=== PATIENT | female | born 1965 | race Caucasian/White ===

== ENCOUNTER 2016-12-13 21:56 | Emergency (ER) | payer SELFPAY ==
[~2016-12-13] VITALS: Ht 149.9 cm; Wt 95.8 kg
[2016-12-13] MEDS ORDERED: LIDOCAINE HCL 1% 50 ML VIAL INFIL ONE (22:30)
--- NOTE | 2016-12-13 22:45 | PD ---
HPI Chief Complaint: Laceration/Skin Injury Time Seen by Provider: 22:40 Travel History International Travel<30 days: No Contact w/Intl Traveler<30days: No Traveled to known affect area: No History of Present Illness HPI 51-year-old female that presents to the ED for evaluation of varicose vein bleed. Patient reports that she was scratching her leg and then also and she noted that she had a little blood on her hand. Per patient she's never had anything like this before. She takes no blood thinners. She has no pain. She is attempted wound sealed as well as pressure and nothing seems to work. Bleeding continues even after the pressure dressing is removed. She has no allergies to medication. No other medical issues. This happened 2 hours ago and she came because she cannot stop the bleeding. [facility] Past Medical History Medical History: Denies Significant Hx Diminished Hearing: No Immunizations Current: Yes Tetanus Vaccination: Unknown Influenza Vaccination: No ?: Not Menopausal: Yes Tubal Ligation: Yes Social History Alcohol Use: No Tobacco Use: Yes (1 PK) Substance Use: No Allergies-Medications (Allergen,Severity, Reaction): Coded Allergies: No Known Allergies (Unverified , 12/13/16) Reported Meds & Prescriptions Reported Meds & Active Scripts Active No Active Prescriptions or Reported Medications Review of Systems Except as stated in HPI: all other systems reviewed are Neg Physical Exam Narrative GENERAL: SKIN: Warm and dry. Patient has a superficial less than a quarter centimeter puncture wound that is profusely bleeding on top of a varicose vein. No be nosebleed noted. Neurovascular intact otherwise. Not tender. Located on the lateral aspect of the left upper leg. HEAD: Atraumatic. Normocephalic. EYES: Pupils equal and round. No scleral icterus. No injection or drainage. ENT: No nasal bleeding or discharge. Mucous membranes pink and moist. NECK: Trachea midline. No JVD. CARDIOVASCULAR: Regular rate and rhythm. RESPIRATORY: No accessory muscle use. Clear to auscultation. Breath sounds equal bilaterally. GASTROINTESTINAL: Abdomen soft, non-tender, nondistended. Hepatic and splenic margins not palpable. MUSCULOSKELETAL: Extremities without clubbing, cyanosis, or edema. No obvious deformities. NEUROLOGICAL: Awake and alert. No obvious cranial nerve deficits. Motor grossly within normal limits. Five out of 5 muscle strength in the arms and legs. Normal speech. PSYCHIATRIC: Appropriate mood and affect; insight and judgment normal. Data Data Orders Wound Care (12/13/16 22:19) Lidocaine 1% Inj (50 Ml) (Xylocaine 1% I (12/13/16 22:30) MDM Medical Decision Making Medical Screen Exam Complete: Yes Emergency Medical Condition: Yes Medical Record Reviewed: Yes Differential Diagnosis Laceration versus varicose bleeding versus venous bleeding Narrative Course 51-year-old female that presents to the ED for evaluation of bleeding from a varicose vein. Patient was properly examined and was found to have signs and symptoms consistent appears to be of small varicose vein bleed. Patient had her a tried wound seals was pressure and is not working. Even with pressure by myself the wound continues to bleed profusely. I do recommend suturing to stop the bleeding. Patient agrees with this. After explaining procedure to the patient and she agreed to it laceration was repaired as stated in procedure note. Complete hemostasis was obtained. Patient was reassured. Patient was told the sutures will come off on their own. Told to follow with PCP. Wound care. See ED for worsening symptoms. Procedures Procedure Narrative LACERATION LOCATION: left leg LENGTH: 0.2 cm NUMBER OF STITCHES/BLANCA: 2 horizontal mattresses REPAIR: The area of the laceration was prepped with Betadine and sterilely draped. The laceration was infiltrated with 1% Xylocaine. The wound was copiously irrigated and explored without evidence of foreign body, tendon injury or neurovascular injury. The wound was closed using 4-0 Prolene. This was a 1 layer repair. A sterile dressing was applied. The patient was advised to keep the dressing clean and dry. Patient tolerated the procedure well. Diagnosis Primary Impression: Bleeding from varicose veins of left lower extremity Patient Instructions: General Instructions Additional Instructions: Sutures should come off in the next 2-4 weeks under own. Apply ice to the area. Avoid and extrinsic DVT. About scratching the area. Watch for signs of infection like redness, pus. See ED if worsening symptoms. Med/Other Pt SpecificInfo: No Change to Meds, Wound Care Scripts No Active Prescriptions or Reported Meds Disposition: 01 DISCHARGE HOME Condition: Stable Hi Miller Dec 13, 2016 22:45
== END 2016-12-13 22:55 | disposition home or self-care (01) ==
LOC: PHEFT 21:56
DX: I83.892 Varicose veins of left lower extremity with other complications (principal); S81.812A Laceration without foreign body, left lower leg, initial encounter; W45.8XXA Other foreign body or object entering through skin, initial encounter
CPT/HCPCS: 12001